=== PATIENT | male | born 1965 | race Caucasian/White ===

== ENCOUNTER 2016-10-30 12:35 | Emergency (ER) | payer MEDICAID ==
[~2016-10-30] VITALS: Ht 172.7 cm; Wt 100.0 kg
[~2016-10-30 12:35] MED LIST: FAMO20TA2 PO; METO50CR PO
[2016-10-30 12:40] VITALS: BP 142/97; PULSE 116; RESP 16; TEMP 98.4; O2SAT 95
--- NOTE | 2016-10-30 14:10 | PD ---
HPI Chief Complaint: Laceration/Skin Injury Time Seen by Provider: 14:09 Travel History International Travel<30 days: No Contact w/Intl Traveler<30days: No Traveled to known affect area: No History of Present Illness HPI 51-year-old male presents to the emergency department for evaluation of a laceration to his right forehead that occurred just prior to arrival. Patient states he bent forward and fell down hitting his head. He denies any LOC. He denies any neck pain or back pain. No chest pain or abdominal pain. No vomiting. He has been ambulatory since the fall. Patient does have a strong smell of alcohol his breath. He states he drink 2 beers today. Patient does report a history of hypertension, but is not currently on any medications. He can any blood thinners or having any bleeding disorders. [facility] Past Medical History Medical History: Denies Significant Hx Hypertension: Yes Past Surgical History Joint Replacement: Yes (hip) Social History Alcohol Use: Yes (occ) Tobacco Use: No Substance Use: No Allergies-Medications (Allergen,Severity, Reaction): Coded Allergies: No Known Allergies (Unverified , 10/30/16) Reported Meds & Prescriptions Reported Meds & Active Scripts Active Reported Famotidine 20 Mg Tab 10 PO BID Metoprolol Succinate ER 50 mg (Metoprolol Succinate) 50 Mg Tab 1 Tab PO DAILY Review of Systems Except as stated in HPI: all other systems reviewed are Neg Physical Exam Narrative GENERAL: Well-developed well-nourished male patient ambulatory. Afebrile., SKIN: Warm and dry. Patient has a 3.5 cm linear laceration to the right forehead. HEAD: Normocephalic. ENT: Mucosa pink and moist. No erythema or exudates. No uvular edema. No uvular , palatal, or tonsillar deviation. Airway patent. Nasal turbinates appear normal without nasal blood, purulent drainage or septal hematoma. Bilateral tympanic membranes are clear without erythema or perforation. EYES: No scleral icterus. No injection or drainage. NECK: Supple, trachea midline. No JVD or lymphadenopathy. CARDIOVASCULAR: Regular rate and rhythm without murmurs, gallops, or rubs. RESPIRATORY: Breath sounds equal bilaterally. No accessory muscle use. Lung sounds are clear to auscultation. GASTROINTESTINAL: Abdomen soft, non-tender, nondistended. MUSCULOSKELETAL: No cyanosis, or edema. No bony point tenderness. BACK: Nontender without obvious deformity. No CVA tenderness. No midline spinal tenderness. Data Data Last Documented VS Vital Signs Date Time Temp Pulse Resp B/P Pulse Ox O2 Delivery O2 Flow Rate FiO2 10/30/16 14:24 85 10/30/16 12:40 98.4 16 142/[address] Brain W/O Iv Contrast(Rout) (10/30/16 ) [facility] Medical Decision Making Medical Screen Exam Complete: Yes Emergency Medical Condition: Yes Medical Record Reviewed: Yes Interpretation(s) CT brain - CONCLUSION: No acute intracranial disease. Differential Diagnosis Laceration versus abrasion versus contusion versus intracranial abnormality Narrative Course 51-year-old male presents to the emergency department for evaluation of laceration to the forehead after he fell. He denies any other injury. Patient does have a strong smell of alcohol on his breath. Therefore, CT of the brain is ordered and pending. Patient gives verbal consent for laceration repair. CT of the brain shows no acute disease. Laceration was repaired with Dermabond. Patient is given wound care instructions. He is agreeable. Patient is stable for discharge. The patient was discharged in stable condition with instructions, including return instructions and follow up instructions. Procedures Procedure Narrative LACERATION LOCATION: Right forehead LENGTH: 3.5 cm NUMBER OF STITCHES/MARCIE: Dermabond REPAIR: The area of the laceration was prepped with Betadine and sterilely draped. The wound was copiously irrigated and explored without evidence of foreign body, tendon injury or neurovascular injury. The wound was closed using Dermabond. This was a single layer repair. A sterile dressing was applied. The patient was advised to keep the dressing clean and dry. Patient tolerated the procedure well. Diagnosis Primary Impression: Facial laceration Qualified Code: S01.81XA - Facial laceration, initial encounter Additional Impression: Closed head injury Qualified Code: S09.90XA - Closed head injury, initial encounter Referrals: Primary Care Physician call for appointment Patient Instructions: Facial Laceration (ED), General Instructions Additional Instructions: Do not soak skin glue. Do not pick at skin glue. It will come off on its own. Do not apply creams or lotions to the skin glue. Follow-up with your primary care physician. Return to the emergency department for any acute worsening of symptoms. Med/Other Pt SpecificInfo: No Change to Meds Disposition: 01 DISCHARGE HOME Condition: Stable Monique Stubbs Oct 30, 2016 14:10
[2016-10-30 14:24] VITALS: PULSE 85
--- NOTE | 2016-10-30 15:02 | RADRPT ---
EXAM DATE/TIME: 10/30/2016 14:36 [place] COMPARISON: No previous studies available for comparison. INDICATIONS : Patient fell, laceration above right eye RADIATION DOSE: 41.27 CTDIvol (mGy) MEDICAL HISTORY : Hypertension. SURGICAL HISTORY : None. ENCOUNTER: Initial ACUITY: 1 day PAIN SCALE: 2/10 LOCATION: Right frontal TECHNIQUE: Multiple contiguous axial images were obtained of the head. Using automated exposure control and adj ustment of the mA and/or kV according to patient size, radiation dose was kept as low as reasonably a chievable to obtain optimal diagnostic quality images. FINDINGS: CEREBRUM: The ventricles are normal for age. No evidence of midline shift, mass lesion, hemorrhage or acute in farction. No extra-axial fluid collections are seen. POSTERIOR FOSSA: The cerebellum and brainstem are intact. The 4th ventricle is midline. The cerebellopontine angle i s unremarkable. EXTRACRANIAL: The visualized portion of the orbits is intact. SKULL: The calvaria is intact. No evidence of skull fracture. CONCLUSION: No acute intracranial disease. Buster Willard MD on October 30, 2016 at 14:57 Board Certified Radiologist. This report was verified electronically.
== END 2016-10-30 15:48 | disposition home or self-care (01) ==
LOC: NEPB 12:35
DX: S01.81XA Laceration without foreign body of other part of head, initial encounter (principal); S09.90XA Unspecified injury of head, initial encounter; I10 Essential (primary) hypertension; W01.10XA Fall on same level from slipping, tripping and stumbling with subsequent striking against unspecified object, initial encounter
CPT/HCPCS: 12013; 70450

== ENCOUNTER 2017-04-28 09:23 | Emergency (ER) | payer MEDICAID ==
[2017-04-28 09:24] VITALS: BP 147/97; PULSE 97; RESP 15; TEMP 98; O2SAT 99
--- NOTE | 2017-04-28 10:21 | PD ---
HPI Chief Complaint: Fall Time Seen by Provider: 09:46 Travel History International Travel<30 days: No Contact w/Intl Traveler<30days: No History of Present Illness HPI Is a 51-year-old man who presents to the emergency department with pain in his tailbone. He states 2-1/2 weeks ago he fell backwards and landed on his tailbone. He states he drinks most days and was intoxicated when this happened. He states that he works and the pain is been getting worse over the past week or so. History Past Medical History Medical History: Denies Significant Hx Social History Alcohol Use: Yes (occ) Tobacco Use: No Allergies-Medications (Allergen,Severity, Reaction): Coded Allergies: No Known Allergies (Unverified , 10/30/16) Reported Meds & Prescriptions Reported Meds & Active Scripts Active Reported Famotidine 20 Mg Tab 10 PO BID Metoprolol Succinate ER 50 mg (Metoprolol Succinate) 50 Mg Tab 1 Tab PO DAILY Review of Systems Except as stated in HPI: all other systems reviewed are Neg Physical Exam Narrative GENERAL: Well-appearing 51-year-old man, no acute distress. SKIN: Warm and dry. CARDIOVASCULAR: Warm and well perfused. RESPIRATORY: Normal rate and effort. MUSCULOSKELETAL: Tenderness over the sacrum and the coccyx in the midline. No ecchymosis or bruising. No SI joint tenderness. No back tenderness step-offs deformities or other abnormality. NEUROLOGICAL: Awake and alert. No gross deficits. Data Data Last Documented VS Vital Signs Date Time Temp Pulse Resp B/P (MAP) Pulse Ox O2 Delivery O2 Flow Rate FiO2 04/28/17 10:02 04/28/17 09:24 98.0 97 15 99 [facility] Medical Decision Making Medical Screen Exam Complete: Yes Emergency Medical Condition: Yes Differential Diagnosis Passage of fracture injury, contusion, other Narrative Course Medical decision-making new para 50-year-old man with tailbone pain. He fell on it about 2-1/2 weeks ago. I splinted he may fracture, but treatment options are all supportive. Offered to do an x-ray. Likely no if it is fractured to that he has no idea how long it'll take to get better. He stated initially that he would want this. Shortly thereafter the another room so that they did not want the x-ray and then eloped prior to receiving discharge instructions. Diagnosis Primary Impression: Left against medical advice Patient Instructions: General Instructions Departure Forms: Tests/Procedures Disposition: AGAINST MEDICAL ADVICE Condition: Stable Royer Willett MD Apr 28, 2017 10:21
== END 2017-04-28 10:04 | disposition left against medical advice (07) ==
LOC: NEPD 09:23
DX: S39.92XA Unspecified injury of lower back, initial encounter (principal); W19.XXXA Unspecified fall, initial encounter
CPT/HCPCS: 99281